=== PATIENT | male | born 1980 ===

== ENCOUNTER 2021-12-10 10:49 | Emergency (ER) | payer OTHER ==
[2021-12-10] MEDS ORDERED: Diphtheria,Pertussis(Acell),Tetanus Vaccine 0.5 ML SDV IM ONE (11:05)
[2021-12-10] MEDS ORDERED: Cephalexin 500 MG Cap ONE (11:30)
[2021-12-13] MEDS ORDERED: Lidocaine 1% 30 ML SDV INFILT ONE (12:24)
== END 2021-12-10 11:49 | disposition home or self-care (01) ==
LOC: LB.ED 10:49
DX: S61.211A Laceration without foreign body of left index finger without damage to nail, initial encounter (principal); Z23 Encounter for immunization; W26.8XXA Contact with other sharp object(s), not elsewhere classified, initial encounter
CPT/HCPCS: 12001; 90471; 90715; 99282-25; A9270-GY